=== PATIENT | male | born 1995 | race African-American/Black ===

== ENCOUNTER 2018-05-27 19:42 | Emergency (ER) | payer OTHER ==
[2018-05-27] MEDS: IBUPROFEN 800 MG TAB PO (21:47)
[2018-05-27] MEDS: ACETAMINOPHEN 325 MG TAB PO (21:48)
[2018-05-27] MEDS: AUGMENTIN 875 MG TAB PO (23:47)
== END 2018-05-27 22:45 | disposition home or self-care (01) ==
LOC: M ED 22:45
DX: J06.9 Acute upper respiratory infection, unspecified (principal); Z91.013 Allergy to seafood; F17.210 Nicotine dependence, cigarettes, uncomplicated
CPT/HCPCS: 87880